=== PATIENT | female | born 1970 | race Caucasian/White ===

== ENCOUNTER 2016-07-08 05:17 | Emergency (ER) | payer OTHER ==
[~2016-07-08] VITALS: Ht 162.6 cm; Wt 93.0 kg
[2016-07-08 06:14] LABS: BASO # 0.1 x10^3/uL (0.0-0.2); BASO % 1 % (0-3); EOS % 3 % (0-3); HEMATOCRIT 43.4 % (36.0-47.0); HEMOGLOBIN 14.7 g/dL (12.0-15.5); LYMPH % 28 % (24-48); MEAN CORPUSCULAR HEMOGLOBIN 29 pg (25-35); MEAN CORPUSCULAR HGB CONC 34 g/dL (31-37); MEAN CORPUSCULAR VOLUME 87 fL (79-100); MONO % 7 % (0-9); NEUT % 61 % (31-73); PLATELET COUNT 196 x10^3/uL (140-400); RED BLOOD COUNT 5.01 x10^6/uL (3.50-5.40); RED CELL DISTRIBUTION WIDTH 13.2 % (11.5-14.5); WHITE BLOOD COUNT 7.3 x10^3/uL (4.0-11.0)
[2016-07-08 06:23] LABS: CALCIUM 8.9 mg/dL (8.5-10.1); CREATININE 0.9 mg/dL (0.6-1.0); GFR 67.1; POTASSIUM 3.7 mmol/L (3.5-5.1)
--- NOTE | 2016-07-08 06:50 | PHYS DOC ---
Past Medical History Past Medical History: No Pertinent History Past Surgical History: , Other Additional Past Surgical Histo: UMBILICAL HERNIA REPAIR, Alcohol Use: Occasionally Drug Use: None Adult General Chief Complaint Chief Complaint: HEADACHE HPI HPI 45-year-old female who has been having significant headache since last evening. Patient does states she has history of migraines and that this is more severe than her usual typical migraines. She is fully alert and oriented and able to answer my questions and in no obvious distress. She states she recently had an infection of the flu 2 weeks ago and is getting over pneumonia in which she finished a Z-Hosea one week ago that was prescribed by her primary doctor. She rates her headache a 10/10 on the pain scale. Review of Systems Review of Systems Constitutional: Denies fever or chills [] Eyes: Denies change in visual acuity, redness, or eye pain [] HENT: Denies nasal congestion or sore throat [] Respiratory: Denies cough or shortness of breath [] Cardiovascular: No additional information not addressed in HPI [] GI: Denies abdominal pain, has nausea, denies vomiting, denies bloody stools or diarrhea [] : Denies dysuria or hematuria [] Musculoskeletal: Denies back pain or joint pain [] Integument: Denies rash or skin lesions [] Neurologic: Has headache, denies focal weakness or sensory changes [] Endocrine: Denies polyuria or polydipsia [] Current Medications Current Medications Current Medications Medications (Trade) Dose Ordered Sig/Cecily Start Time Stop Time Status Last Admin Dose Admin Diphenhydramine HCl (Benadryl) 25 mg 1X ONCE 07/08/16 07:00 07/08/16 07:01 DC 07/08/16 07:24 25 MG Info (Do NOT chart on this entry -- for MONITORING) 1 each PRN DAILY PRN 07/08/16 09:00 07/08/16 10:57 DC Iohexol (Omnipaque 300 Mg/ml) 75 ml 1X ONCE 07/08/16 09:00 07/08/16 09:01 DC 07/08/16 09:40 75 ML Ketorolac Tromethamine (Toradol) 30 mg 1X ONCE 07/08/16 07:00 07/08/16 07:01 DC 07/08/16 07:23 30 MG Metoclopramide HCl 10 mg 10 mg 1X ONCE 4/13/17 07:00 07/08/16 07:01 DC 07/08/16 07:24 10 MG Sodium Chloride (Iv Sodium Chloride 0.9% 1000ml Bag) 1,000 ml @ 1,000 mls/hr 1X ONCE 07/08/16 07:00 07/08/16 07:59 DC 07/08/16 07:23 1,000 MLS/HR Allergies Allergies Allergies Coded Allergies Type Severity Reaction Last Updated Verified No Known Drug Allergies 07/08/16 No Physical Exam Physical Exam Constitutional: Well developed, well nourished, no acute distress, non-toxic appearance. [] HENT: Normocephalic, atraumatic, bilateral external ears normal, oropharynx moist, no oral exudates, nose normal. [] Eyes: PERRLA, EOMI, conjunctiva normal, no discharge. [] Neck: Normal range of motion, no tenderness, supple, no stridor. [] Cardiovascular:Heart rate regular rhythm, no murmur [] Lungs & Thorax: Bilateral breath sounds clear to auscultation [] Abdomen: Bowel sounds normal, soft, no tenderness, no masses, no pulsatile masses. [] Skin: Warm, dry, no erythema, no rash. [] Back: No tenderness, no CVA tenderness. [] Extremities: No tenderness, no cyanosis, no clubbing, ROM intact, no edema. [] Neurologic: Alert and oriented X 3, normal motor function, normal sensory function, no focal deficits noted. [] Psychologic: Affect normal, judgement normal, mood normal. [] Current Patient Data Vital Signs Vital Signs Date Time Temp Pulse Resp B/P Pulse Ox O2 Delivery O2 Flow Rate FiO2 07/08/16 07:25 73 12 110/62 95 Room Air 07/08/16 05:46 97.5 97.5 Lab Values Laboratory Tests Test 07/08/16 04:52 07/08/16 05:40 POC Urine HCG, Qualitative Hcg negative (Negative) White Blood Count 7.3x10^3/uL (4.0-11.0) Red Blood Count 5.01x10^6/uL (3.50-5.40) Hemoglobin 14.7g/dL (12.0-15.5) Hematocrit 43.4% (36.0-47.0) Mean Corpuscular Volume 87fL (79-100) Mean Corpuscular Hemoglobin 29pg (25-35) Mean Corpuscular Hemoglobin Concent 34g/dL (31-37) Red Cell Distribution Width 13.2% (11.5-14.5) Platelet Count 196x10^3/uL (140-400) Neutrophils (%) (Auto) 61% (31-73) Lymphocytes (%) (Auto) 28% (24-48) Monocytes (%) (Auto) 7% (0-9) Eosinophils (%) (Auto) 3% (0-3) Basophils (%) (Auto) 1% (0-3) Neutrophils # (Auto) 4.5x10^3uL (1.8-7.7) Lymphocytes # (Auto) 2.0x10^3/uL (1.0-4.8) Monocytes # (Auto) 0.5x10^3/uL (0.0-1.1) Eosinophils # (Auto) 0.2x10^3/uL (0.0-0.7) Basophils # (Auto) 0.1x10^3/uL (0.0-0.2) Sodium Level 139mmol/L (136-145) Potassium Level 3.7mmol/L (3.5-5.1) Chloride Level 104mmol/L (98-107) Carbon Dioxide Level 26mmol/L (21-32) Anion Gap 9 (6-14) Blood Urea Nitrogen 16mg/dL (7-20) Creatinine 0.9mg/dL (0.6-1.0) Estimated GFR (Cockcroft-Gault) 67.1 Glucose Level 111mg/dL (70-99) H Calcium Level 8.9mg/dL (8.5-10.1) Laboratory Tests 07/08/16 05:40 Laboratory Tests 07/08/16 05:40 EKG EKG [] Radiology/Procedures Radiology/Procedures CT scan of the head without contrast 07/08/2016 Clinical history: Headaches. Technique: Unenhanced, contiguous, 5 mm axial sections were obtained through the head. One or more of the following individualized dose reduction techniques were utilized for this study: 1. Automated exposure control. 2. Adjustment of the mA and/or kV according to patient size. 3. Use of iterative reconstruction technique. Findings: The ventricles and sulci are within normal limits in size and configuration. No area of abnormal attenuation is involving the brain parenchyma. No extra-axial fluid collection is seen. No skull fracture is noted. Impression: Negative study. DICTATED and SIGNED BY: JUANY CONNER MD DATE: 07/08/16 0713 CC: EDAMIGUELMALACHI PELLETIER Mickey ; NO PCP ~ CTA of the head without and with contrast 07/08/2016 Clinical history: Migraine headaches. Technique: Unenhanced, contiguous, 2 mm axial sections were obtained through the head. After the intravenous administration of 75 cc of Omnipaque 300, contiguous, 0.625 mm axial sections were obtained through the head. Multiplanar 3-D MIP and volume rendered 3-D reconstructed images were obtained. One or more of the following individualized dose reduction techniques were utilized for this study: 1. Automated exposure control. 2. Adjustment of the mA and/or kV according to patient size. 3. Use of iterative reconstruction technique. Findings: Comparison is made to patient's CT scan of the head performed earlier today. The unenhanced CT images of the head are within normal limits. The petrous, cavernous and supraclinoid portions of the internal carotid arteries are within normal limits. The distal vertebral arteries and basilar artery are within normal limits. The anterior, middle and posterior cerebral arteries and their branches are within normal limits. No area of stenosis or occlusion is seen. No intracranial aneurysm is noted. No vascular malformation is seen. The major dural venous sinuses are patent. No area of abnormal contrast enhancement is noted. Impression: Negative study. Course & Med Decision Making Course & Med Decision Making Pertinent Labs and Imaging studies reviewed. (See chart for details) This 45-year-old female is having significant headache will have a head CT to rule out any acute cause of her symptoms as well as a migraine cocktail and laboratory workup. Her laboratory workup is unrevealing at this time. A head CT is pending. Pt is afebrile and nontoxic in appearance. Her neurologic exam is negative for any focal signs. CT of her head without contrast is negative for any acute pathology. A CT of her head was then obtained which also was negative for any acute vascular malformation or aneurysm. Her symptoms improved after typical migraine cocktail and she will be safe to be discharged home with close follow-up with instruction to return if her headache should not improve over the next 24 hours. Her laboratory workup was unremarkable. Dragon Disclaimer Dragon Disclaimer This electronic medical record was generated, in whole or in part, using a voice recognition dictation system. Departure Departure Impression: Primary Impression: Headache Disposition: 01 HOME, SELF-CARE Admitting Physician: Other Condition: STABLE Referrals: NO PCP (PCP) Patient Instructions: General Headache Without Cause, [id number] Additional Instructions: Please follow up closely in the next several days for your headache symptoms. Return to the ER if you develop any worsening of your symptoms. Remain in a quiet dark room for the next 24 hours. MALACHI GILMAN DO Jul 08, 2016 06:50
[2016-07-08] MEDS ORDERED: METOCLOPRAMIDE HCL 10 MG/2 ML VIAL. IV ONE (07:00)
[2016-07-08] MEDS ORDERED: DIPHENHYDRAMINE 50 MG/ML VIAL. IVP ONE (07:00)
[2016-07-08] MEDS ORDERED: KETOROLAC TROMETHAMINE 30 MG/ML INJ. IV ONE (07:00)
[2016-07-08] MEDS ORDERED: IV NORMAL SALINE 1000ML BAG 1,000 ML IV ONE (07:00)
--- NOTE | 2016-07-08 07:16 | RAD ---
CT scan of the head without contrast 07/08/2016 Clinical history: Headaches. Technique: Unenhanced, contiguous, 5 mm axial sections were obtained through the head. One or more of the following individualized dose reduction techniques were utilized for this study: 1. Automated exposure control. 2. Adjustment of the mA and/or kV according to patient size. 3. Use of iterative reconstruction technique. Findings: The ventricles and sulci are within normal limits in size and configuration. No area of abnormal attenuation is involving the brain parenchyma. No extra-axial fluid collection is seen. No skull fracture is noted. Impression: Negative study.
[2016-07-08] MEDS ORDERED: IOHEXOL 300 MG/ML 75 ML VIAL IV ONE (09:00)
[2016-07-08] MEDS ORDERED: CONTRAST GIVEN MC PRN (09:00)
--- NOTE | 2016-07-08 10:20 | RAD ---
CTA of the head without and with contrast 07/08/2016 Clinical history: Migraine headaches. Technique: Unenhanced, contiguous, 2 mm axial sections were obtained through the head. After the intravenous administration of 75 cc of Omnipaque 300, contiguous, 0.625 mm axial sections were obtained through the head. Multiplanar 3-D MIP and volume rendered 3-D reconstructed images were obtained. One or more of the following individualized dose reduction techniques were utilized for this study: 1. Automated exposure control. 2. Adjustment of the mA and/or kV according to patient size. 3. Use of iterative reconstruction technique. Findings: Comparison is made to patient's CT scan of the head performed earlier today. The unenhanced CT images of the head are within normal limits. The petrous, cavernous and supraclinoid portions of the internal carotid arteries are within normal limits. The distal vertebral arteries and basilar artery are within normal limits. The anterior, middle and posterior cerebral arteries and their branches are within normal limits. No area of stenosis or occlusion is seen. No intracranial aneurysm is noted. No vascular malformation is seen. The major dural venous sinuses are patent. No area of abnormal contrast enhancement is noted. Impression: Negative study.
[2016-07-08 10:30] VITALS: BP 112/62
== END 2016-07-08 10:50 | disposition home or self-care (01) ==
LOC: ER 05:17
DX: R51 Headache (principal); G43.909 Migraine, unspecified, not intractable, without status migrainosus
CPT/HCPCS: 36415; 70450; 70496; 80048; 81025; 85027; 96361; 96374; 96375; 99285; J1200; J1885; J2765; J7030; Q9967

== ENCOUNTER → 2016-10-29 | Outpatient (CLI) | payer OTHER ==
[~2016-10-29] MED LIST: CONTRAST GIVEN MC PRN; IOHEXOL 300 MG/ML 75 ML VIAL IV ONE
--- NOTE | 2016-10-29 13:15 | RAD ---
CT chest with contrast 10/29/2016 Clinical indication: Chest pain. Comparison: None. Technique: Multiple CT images were obtained of the chest following uneventful intravenous administration of 75 mL Omnipaque 300. Coronal and sagittal reformations were obtained. PQRS Compliance Statement: One or more of the following individualized dose reduction techniques were utilized for this examination: 1. Automated exposure control 2. Adjustment of the mA and/or kV according to patient size 3. Use of iterative reconstruction technique Chest findings: Heart size is normal without significant pericardial effusion. The thoracic aorta is normal in caliber. No axillary, mediastinal or hilar lymphadenopathy. The central airways are patent. There is minimal dependent atelectasis in both lungs. No pleural effusion, pneumothorax or airspace consolidation. No suspicious noncalcified pulmonary nodules. There are no destructive osseous lesions. Limited images of the upper abdomen: Unremarkable. Impression: No pleural effusion, pneumothorax or focal airspace consolidation.
--- NOTE | 2016-10-29 14:10 | CARD ---
APPROVED REPORT EXAM: Two-dimensional and M-mode echocardiogram with Doppler and color Doppler. Other Information Quality : GoodHR: 84bpm Rhythm : NSR INDICATION Chest pain RISK FACTORS Obesity Family History Smoking 2D DIMENSIONS RVDd3.0 (2.9-3.5cm)Left Atrium(2D)3.5 (1.6-4.0cm) IVSd0.7 (0.7-1.1cm)Aortic Root(2D)2.9 (2.0-3.7cm) LVDd5.0 (3.9-5.9cm)LVOT Diameter2.3 (1.8-2.4cm) PWd0.7 (0.7-1.1cm)LVDs3.2 (2.5-4.0cm) FS (%) 36.1 %SV77.5 ml LVEF(%)65.5 (>50%) Aortic Valve AoV Peak Oscar.124.9cm/sAoV VTI26.4cm AO Peak GR.6.2mmHgLVOT Peak Oscar.109.9cm/s AO Mean GR.4mmHgAVA (VMAX)3.55cm2 Mitral Valve MV E Zhhgnlpw88.5cm/sMV E Peak Gr.2mmHg MV DECEL BSON336gvST A Hxramcok56.5cm/s MV E Mean Gr.1mmHgE/A Ratio0.9 MV A Rvjofoyc82yl Pulmonary Valve PV Peak Toeyqqmu218.4cm/s Pulmonary Vein S1 Vuqtntbn28.4cm/sD2 Lcyvukoi96.4cm/s PVa [id number] LEFT VENTRICLE The left ventricle is normal size. There is normal left ventricular wall thickness. The left ventricu lar systolic function is normal. The Ejection Fraction is 60-65%. There is normal LV segmental wall m otion. Transmitral Doppler flow pattern is Grade I-abnormal relaxation pattern. RIGHT VENTRICLE The right ventricle is normal size. There is normal right ventricular wall thickness. The right ventr icular systolic function is normal. ATRIA The left atrium size is normal. The right atrium size is normal. The interatrial septum is intact wit h no evidence for an atrial septal defect or patent foramen ovale as noted on 2-D or Doppler imaging. AORTIC VALVE The aortic valve is mildly thickened. The aortic valve is trileaflet. Doppler and Color Flow revealed no significant aortic regurgitation. There is no significant aortic valvular stenosis. MITRAL VALVE The mitral valve leaflets are mildly thickened. There is no evidence of mitral valve prolapse. There is no mitral valve stenosis. Doppler and Color Flow revealed no mitral valve regurgitation noted. TRICUSPID VALVE Doppler and Color Flow revealed no tricuspid valve regurgitation noted. Unable to determine pulmonary artery pressure at exam time. PULMONIC VALVE The pulmonic valve is not well visualized but appears to open well. Doppler and Color Flow revealed n o pulmonic valvular regurgitation. There is no pulmonic valvular stenosis by spectral Doppler. GREAT VESSELS The aortic root is normal in size. The ascending aorta is normal in size. The pulmonary artery is nor mal. The IVC is normal in size and collapses >50% with inspiration. PERICARDIAL EFFUSION There is no evidence of significant pericardial effusion. Critical Notification Critical Value: No <Conclusion> The left ventricular systolic function is normal. The Ejection Fraction is 60-65%. There is normal LV segmental wall motion. There is no evidence of significant pericardial effusion.
--- NOTE | 2016-10-29 14:12 | RAD ---
APPROVED REPORT Test Type: Exercise Stress Nurse/Tech: Joan Thompson R.N. Test Indications: chest pain Cardiac History: No known cardiac , smoker Medications: See Electronic Medical Record Medical History: See Electronic Medical Record Resting ECG: NSR Resting Heart Rate: 81 bpm Resting Blood Pressure: 130/71mmHg Pretest Chest Pain: No chest pain Nurse/Tech Notes S1S2, lungs sound clear Consent: The procedure was explained to the patient in lay terms. Informed consent was witnessed. Pavel eout was entered into [employer]. History and Stress Test performed by Joan Thompson R.N. POST EXERCISE Reason for Termination: Reached target heart rate, Dyspnea Target HR: 146 Max HR: 169 bpm Exercise duration: 8 min, min:sec, 3 Stage Max Blood Pressure: 140/80mmHg Blood Pressure response to exercise: Normal blood pressure response during stress. Chest Pain: No. Arrhythmia: Yes. occ PVC ST Change: No. INTERPRETATION Stress EKG Conclusion: Baseline EKG showed sinus rhythm. No ischemic changes at peak stress. No arr hythmias. Conclusion 1. Treadmill exercise stress electrocardiogram did not show any diagnostic evidence of ischemia. 2. Patient had good activity tolerance.
== END | disposition home or self-care (01) ==
LOC: CT 09:50
PROVIDERS: ATTEND Internal Medicine Cardiovascular Disease
DX: R07.9 Chest pain, unspecified (principal); R06.00 Dyspnea, unspecified
CPT/HCPCS: 71260; 93017; 93306; Q9967

== ENCOUNTER → 2016-11-18 | Outpatient (CLI) | payer OTHER ==
--- NOTE | 2016-11-18 12:53 | RAD ---
APPROVED REPORT Test Type: Exercise Stress Nurse/Tech: Jp Stuart R.N. Test Indications: Lungs CTA, S1, S2 Cardiac History: see ehr Medications: see ehr Medical History: see ehr Resting ECG: SR Resting Heart Rate: 72 bpm Resting Blood Pressure: 128/68mmHg Pretest Chest Pain: None Nurse/Tech Notes Lungs CTA, S1, S2 Consent: The procedure was explained to the patient in lay terms. Informed consent was witnessed. Pavel eout was entered into [employer]. History and Stress Test performed by Jp Stuart R.N. Stress Symptoms No chest pain or symptoms. POST EXERCISE Reason for Termination: Reached target heart rate Target HR: Yes Max HR: 160 bpm 109% of Maximum Predicted HR: 146 bpm Exercise duration: 7:59 min:sec, 2 Stage Exercise capacity: 10.0METs Max Blood Pressure: 118/53mmHg Blood Pressure response to exercise: Normal blood pressure response during stress. Chest Pain: No. Arrhythmia: No. ST Change: No. INTERPRETATION Stress EKG Conclusion: Baseline EKG showed sinus rhythm. No ischemic changes at peak stress. No arr hythmias. Imaging Protocol IMAGE PROTOCOL: Rest Tc-99m/stress Tc-99m 1 day Rest: Stress: Viability: Radiopharm.Tc99m SbczwtwniCd49n Sestamibi Lzoz31tIc 33.5mCi Duration 15min. 12min. Img Date 11/18/2016 11/18/2016 Inj-Img Fqix33rub. 60min. Rest Admin Site:IV - Right HandAdministrator:Thai Robertson RT (R)(N) Stress Admin Site: IV - Right HandAdministrator: Xiomara Andrade RT (R)(N) STRESS DATA End Diast. Vol.73.0mlAv. Heart Rate86.0bpm End Syst. Vol.13.0mlCO Index BSA0.0L/min Myocardial Ksey961.0gEject. Hwjkiagz69.0% Stress Rates Pk. Fill Rate4.93EDV/secLVtime Pk. Fill 173.06msec Pk. Empty Rate5.32ESV/secLVtime Pk. Nkqlu339.57msec 03/30 Pk. Fill1.61EDV/sec Stress Scores Regional WT0.00Summed WT0.00 Regional WM0.00Summed WM0.00 Study quality was good. Left Ventricular size was Normal at Rest and Stress. Lung uptake was Normal. Left Ventricular ejection fraction is 82%. The rest and stress images show normal perfusion, normal contraction and thickening. LV Perf. Quant 17 Seg. SSS0.00 17 Seg. SRS1.00 17 Seg. SDS0.00 Stress Defect Extent (% LAD)0.00Rest Defect Extent (% LAD)0.00Rev. Defect Extent (% LAD)0.00 Stress Defect Extent (% LCX) 0.00Rest Defect Extent (% LCX)0.00Rev. Defect Extent (% LCX)0.00 Stress Defect Extent (% RCA)0.00Rest Defect Extent (% RCA)0.00Rev. Defect Extent (% RCA)0.00 Stress Defect Extent (% GWENDOLYN)0.00Rest Defect Extent (% GWENDOLYN)0.00Rev. Defect Extent (% GWENDOLYN)0.00 Conclusion 1. Treadmill exercise cardioisotope stress test did not show any evidence of ischemia or infarct. 2. Normal left ventricular systolic function with ejection fraction calculated at 82%. 3. Low risk for cardiac events.
== END | disposition home or self-care (01) ==
LOC: NM 08:53
PROVIDERS: ATTEND Internal Medicine Cardiovascular Disease
DX: R07.9 Chest pain, unspecified (principal)
CPT/HCPCS: 78452; 93017; 96374; 96376; A9500

== ENCOUNTER → 2017-06-13 | Outpatient (CLI) | payer OTHER | END | disposition home or self-care (01) | LOC: US 07:54 | DX: K83.8 Other specified diseases of biliary tract (principal) | CPT/HCPCS: 76700 ==

== ENCOUNTER → 2017-06-24 | Day surgery (SDC) | payer OTHER ==
[~2017-06-24] MED LIST changes: -CONTRAST GIVEN MC PRN; +DEXAMETHASONE SOD PHOS 20 MG/5 ML VIAL.; +GLUCAGON,HUMAN RECOMBINANT 1 MG/ML VIAL.; +GLYCOPYRROLATE 1 MG/5 ML VIAL.; -IOHEXOL 300 MG/ML 75 ML VIAL IV ONE; +LIDOCAINE 1% PF 2 ML VIAL. ID; +MIDAZOLAM HCL/PF 2 MG/2 ML VIAL.; +MORPHINE SULFATE 4 MG/ML DISP.SYRIN.; +NEOSTIGMINE 10 MG/10 ML VIAL.; +ONDANSETRON PF 4 MG/2 ML VIAL.; +ONDANSETRON PF 4 MG/2 ML VIAL. IV; +PROCHLORPERAZINE 10 MG/2 ML VIAL.; +PROPOFOL 20 ML IV; +ROCURONIUM 50 MG/5 ML VIAL.; +SEVOFLURANE 61 TO 120 MINUTES. IH; +fentaNYL PF VIAL 100 MCG/2 ML VIAL; +fentaNYL PF VIAL 100 MCG/2 ML VIAL IV; +fentaNYL PF VIAL 250 MCG/5 ML VIAL
[2017-06-24] MEDS: IV RINGERS,LACTATED 1000ML 1,000 ML IV (10:19)
[2017-06-24] MEDS: IOHEXOL 300 MG/ML 100ML VIAL. (11:51)
[2017-06-24] MEDS: SURGICEL HEMOSTAT 4X8 EACH. (11:51)
[2017-06-24] MEDS: BUPIVACAINE-EPI 0.25%-1:200000 50 ML VIAL. (11:51)
[2017-06-24] MEDS: MORPHINE SULFATE 4 MG/ML DISP.SYRIN. IV ×2 (12:57→13:14)
[2017-06-24] MEDS: fentaNYL PF VIAL 100 MCG/2 ML VIAL IV ×2 (13:07→13:36)
[2017-06-24] MEDS: PROCHLORPERAZINE 10 MG/2 ML VIAL. IV (13:34)
[2017-06-24] MEDS: oxyCODONE/APAP 5/325 1 TAB TABLET PO (14:30)
== END ==
LOC: SURG 09:39
DX: K80.10 Calculus of gallbladder with chronic cholecystitis without obstruction (principal); K21.9 Gastro-esophageal reflux disease without esophagitis; Z79.899 Other long term (current) drug therapy; Z88.8 Allergy status to other drugs, medicaments and biological substances; Z98.890 Other specified postprocedural states; Z98.51 Tubal ligation status
CPT/HCPCS: 47563; 74300; 88304; J0690; J0780; J1100; J1610; J2250; J2270; J2405; J2704; J2710; J3010; J3490; Q9967